=== PATIENT | female | born 1970 | race Two or more races ===

== ENCOUNTER 2017-01-13 10:36 | Emergency (ER) | payer SELFPAY ==
[~2017-01-13] VITALS: Ht 160 cm; Wt 55.8 kg
--- NOTE | 2017-01-13 10:45 | NUR ---
[facility] OFFICERS AT [facility].
[2017-01-13] MEDS ORDERED: CYCLOBENZAPRINE 10 MG TABLET ONE (10:51)
[2017-01-13] MEDS ORDERED: HYDROCODONE/APAP 5/325MG 1 EACH TABLET ONE (10:51)
[2017-01-13] MEDS ORDERED: ONDANSETRON 4 MG TAB.RAPDIS ONE (10:52)
--- NOTE | 2017-01-13 10:56 | NUR ---
PT MEDICATED ORDERED.
--- NOTE | 2017-01-13 10:57 | NUR ---
Pedro Pablo jackson in [facility] - 01/13/17 at 1058 by VANNESA PT MEDICATED ORDERED.
--- NOTE | 2017-01-13 10:58 | NUR ---
PT TAKEN TO CT.
[2017-01-13] MEDS ORDERED: CYCLOBENZAPRINE 10 MG TABLET PO ONE (11:00)
[2017-01-13] MEDS ORDERED: ONDANSETRON 4 MG TAB.RAPDIS SL ONE (11:00)
[2017-01-13] MEDS ORDERED: HYDROCODONE/APAP 5/325MG 1 EACH TABLET PO ONE (11:00)
--- NOTE | 2017-01-13 12:15 | NUR ---
Patient discharged to home in stable condition. Written and verbal after care instructions given. Patient verbalizes understanding of instruction. Pt ambulatory with a steady gait.
[2017-01-13 12:32] VITALS: BP 135/85
== END 2017-01-13 12:33 | disposition home or self-care (01) ==
LOC: ER 10:38
DX: S16.1XXA Strain of muscle, fascia and tendon at neck level, initial encounter (principal); S00.03XA Contusion of scalp, initial encounter; S00.212A Abrasion of left eyelid and periocular area, initial encounter; M25.552 Pain in left hip; R51 Headache; X58.XXXA Exposure to other specified factors, initial encounter; Y93.01 Activity, walking, marching and hiking; Y92.488 Other paved roadways as the place of occurrence of the external cause; Y99.8 Other external cause status
CPT/HCPCS: 70450; 72125; 73080; 73503; 99284; A4606; Q0162; Z7610; 73502